=== PATIENT | male | born 1980 | race Caucasian/White ===

== ENCOUNTER 2019-04-01 13:04 | Emergency (ER) | payer OTHER ==
[~2019-04-01] VITALS: Ht 182.9 cm; Wt 73.9 kg
[2019-04-01 13:36] VITALS: BP 132/75
[2019-04-01] MEDS ORDERED: IBUPROFEN 600 MG TABLET PO ONE ×2 (14:22→14:30)
== END 2019-04-01 16:46 | disposition home or self-care (01) ==
LOC: ER 13:07
DX: S49.81XA Other specified injuries of right shoulder and upper arm, initial encounter (principal); S69.81XA Other specified injuries of right wrist, hand and finger(s), initial encounter; Y04.0XXA Assault by unarmed brawl or fight, initial encounter; Y93.89 Activity, other specified; Y92.89 Other specified places as the place of occurrence of the external cause; Y99.8 Other external cause status
CPT/HCPCS: 73030-TC; 73130-TC